=== PATIENT | female | born 1980 | race Caucasian/White ===

== ENCOUNTER 2017-02-02 19:32 | Inpatient (IN) | payer MEDICAID, OTHER ==
[~2017-02-02] VITALS: Ht 160 cm; Wt 77.0 kg
[2017-02-02] MEDS ORDERED: FAMOTIDINE 20 MG TAB PO STA (20:28)
[2017-02-02] MEDS ORDERED: ONDANSETRON 4 MG INJ IV STA ×2 (20:28→21:53)
[2017-02-02] MEDS ORDERED: morphine 4 MG/ML VIAL IV STA (20:28)
--- NOTE | 2017-02-02 20:34 | ERD ---
ER Documentation Chief Complaint Date/Time DATE: 02/02/17 TIME: 20:31 Chief Complaint C/O abd pain x 3 wks. (+) N/V. Dx'd with GS. Needs surgery. HPI This is a 36-year-old female who presents the emergency department today with her for complaints of abdominal pain for the past 7-8 days. States she also has nausea. States that she went to [place] a couple of days ago as that was the closest hospital and was told she had gallstones. States that she did go to her primary care doctor but she is waiting for referral for specialist. States she is taking [place] with no improvement in symptoms. Denies any fevers or chills, dysuria, diarrhea. ROS All systems reviewed and are negative except as per history of present illness. Medications Home Meds No Active Prescriptions or Reported Meds Allergies Allergies: Coded Allergies: No Known Allergy (Unverified , 11/14/15) PMhx/Soc Medical and Surgical Hx: pt denies Surgical Hx History of Surgery: No Anesthesia Reaction: No Hx Neurological Disorder: No Hx Respiratory Disorders: No Hx Cardiac Disorders: No Hx Psychiatric Problems: No Hx Miscellaneous Medical Probl: Yes (Gallstones) Hx Alcohol Use: No Hx Substance Use: No Hx Tobacco Use: No Smoking Status: Never smoker Physical Exam Vitals Vital Signs Date Time Temp Pulse Resp B/P Pulse Ox O2 Delivery O2 Flow Rate FiO2 02/02/17 19:35 98.5 78 18 139/80 99 Physical Exam Const: obese, mild distress Head: Atraumatic Eyes: Normal Conjunctiva ENT: Normal External Ears, Nose and Mouth. Neck: Full range of motion..~ No meningismus. Resp: Clear to auscultation bilaterally Cardio: Regular rate and rhythm, no murmurs Abd: Soft, epigastric and right upper quadrant tenderness, non distended. Normal bowel sounds no lower abdominal pain. No tenderness at McBurney's. Skin: No petechiae or rashes Back: No midline or flank tenderness Ext: No cyanosis, or edema Neur: Awake and alert Psych: Normal Mood and Affect Result Diagram: 02/02/17204902/02/172049 Results 24 hrs Laboratory Tests Test 02/02/17 20:45 02/02/17 20:50 Urine Color JUVE Urine Clarity CLEAR Urine pH 6.0 Urine Specific [place] 1.024 Urine Ketones 2+mg/dL Urine Nitrite NEGATIVEmg/dL Urine Bilirubin NEGATIVEmg/dL Urine Urobilinogen 2+mg/dL Urine Leukocyte Esterase NEGATIVELeu/ul Urine Microscopic RBC 41/HPF Urine Microscopic WBC 4/HPF Urine Squamous Epithelial Cells FEW/HPF Urine Mucus FEW/HPF Urine Hemoglobin 3+mg/dL Urine Glucose NEGATIVEmg/dL Urine Total Protein 2+mg/dl White Blood Count 19.310^3/ul Red Blood Count 5.2110^6/ul Hemoglobin 14.1g/dl Hematocrit 43.0% Mean Corpuscular Volume 82.5fl Mean Corpuscular Hemoglobin 27.1pg Mean Corpuscular Hemoglobin Concent 32.8g/dl Red Cell Distribution Width 13.2% Platelet Count 80074^3/UL Mean Platelet Volume 10.2fl Neutrophils % 85.9% Lymphocytes % 5.4% Monocytes % 7.9% Eosinophils % 0.0% Basophils % 0.2% Nucleated Red Blood Cells % 0.0/100WBC Neutrophils # 16.610^3/ul Lymphocytes # 1.010^3/ul Monocytes # 1.510^3/ul Eosinophils # 0.010^3/ul Basophils # 0.010^3/ul Nucleated Red Blood Cells # 0.010^3/ul Sodium Level 136mmol/L Potassium Level 3.4mmol/L Chloride Level 97mmol/L Carbon Dioxide Level 27mmol/L Anion Gap 15 Blood Urea Nitrogen 8mg/dl Creatinine 0.59mg/dl Glucose Level 149mg/dl Calcium Level 9.4mg/dl Total Bilirubin 2.5mg/dl Direct Bilirubin 0.00mg/dl Indirect Bilirubin 2.5mg/dl Aspartate Amino Transf (AST/SGOT) 48IU/L Alanine Aminotransferase (ALT/SGPT) 131IU/L Alkaline Phosphatase 223IU/L Total Protein 9.3g/dl Albumin 4.9g/dl Globulin 4.40g/dl Albumin/Globulin Ratio 1.11 Lipase 94U/L Current Medications Medications (Trade) Dose Ordered Sig/Jose Route PRN Reason Start Time Stop Time Status Last Admin Dose Admin Morphine Sulfate (morphine) 4 mg ONCE STAT IV 02/02/17 20:28 02/02/17 20:31 DC 02/02/17 20:57 Ondansetron HCl (Zofran Inj) 4 mg ONCE STAT IV 02/02/17 20:28 02/02/17 20:31 DC 02/02/17 20:57 Famotidine 20 mg 20 mg ONCE STAT PO 02/02/17 20:28 02/02/17 20:31 DC 02/02/17 20:56 Sodium Chloride (NS) 1,000 ml @ 1,000 mls/hr Q1H ONCE IV 02/02/17 22:00 02/02/17 22:59 DC 02/02/17 22:05 Hydromorphone HCl (Dilaudid) 1 mg ONCE STAT IV 02/02/17 21:53 02/02/17 21:54 DC 02/02/17 22:04 Ondansetron HCl (Zofran Inj) 4 mg ONCE STAT IV 02/02/17 21:53 02/02/17 21:54 DC 02/02/17 22:04 DIAGNOSTIC IMAGING REPORT Patient: LASHANDA GARCIA : 1980 Age: 36 Sex: F MR #: [id number] DOS: 02/02/172027 Ordering MD: SHERRI STEINBERG PA-C Location: FTE Room/Bed: PROCEDURE: Limited ultrasound of the gallbladder. CLINICAL INDICATION: 36 years of age, female. Abdominal pain. TECHNIQUE: Multiple real-time longitudinal and transverse images of the gallbladder and the bile ducts were acquired utilizing a curved array transducer. Images were reviewed on a high-resolution PACS workstation. COMPARISON: None available. FINDINGS: Pancreas: Not well seen due to bowel gas. Liver appearance: Mildly echogenic in keeping with steatosis. Liver length: 15.9 cm Bile Ducts: No intrahepatic or extrahepatic biliary ductal dilatation. CBD: 0.5 cm. Gallbladder: 2.6 cm shadowing stone is lodged in the gallbladder neck. Gallbladder wall measures 2 mm. Gallbladder is mildly distended. Main portal vein is patent with hepatopetal flow. Right kidney length: 9.2 cm. Right kidney appearance: Evaluation is limited due to bowel gas. Negative for hydronephrosis. Lower pole parenchyma is not well seen. Other: None. IMPRESSION: Cholelithiasis without evidence of gallbladder wall inflammation on ultrasound. Gallstone is lodged in the gallbladder neck and may account for right upper quadrant pain. Mild hepatic steatosis. Limited abdominal ultrasound due to patient discomfort and bowel gas. Pancreas and right kidney are not well seen. RPTAT: HCTS Physician Rell Date Time Electronically viewed and signed by Trish Carvalho Physician on 02/02/2017 21: 59 CS/ CC: SHERRI STEINBERG PA-C Procedures/MDM This is a 36-year-old female who presents the emergency department today complaining of abdominal pain for the past 7-8 days and worse over the past couple of days. Patient was recently diagnosed at [facility] with gallstones. Patient presents today because of continued persistent pain. Per medical records this is the patient's first visit to this emergency department for this type of abdominal pain. Given patient's physical exam I did obtain laboratory workup and imaging. Laboratory workup elevated white blood cell count of 19.3. She is not anemic. Platelets are within normal limits. Potassium is very mildly decreased otherwise electrolytes are within normal limits. Glucose within normal limits. Lipase is within normal limits. Liver enzymes are elevated. Bilirubin is elevated at 2.5. UA is negative for infection. urine test is negative right upper quadrant ultrasound shows cholelithiasis without evidence of gallbladder wall inflammation on ultrasound. There is a gallstone lodged in the gallbladder neck. The gallbladder is mildly distended. Patient was given morphine, Zofran, Pepcid here in the emergency department and pain persisted and she was therefore given IV fluids, 1 mg Dilaudid. Pain slightly improved. I did discuss the patient with Dr. Gurrola and given her abnormal laboratory workup as well as a gallstone lodged in the gallbladder neck he feels it would be beneficial for the patient to be admitted for further evaluation of possible choledocholithiasis with MRCP. I have discussed the results with the patient and her and they have agreed to be admitted. Any further orders placed will be completed by the admitting physician Departure Diagnosis: Primary Impression: Abdominal pain Abdominal location: right upper quadrant Qualified Code: R10.11 - Right upper quadrant abdominal pain Additional Impression: Choledocholithiasis Condition: Fair SHERRI STEINBERG PA-C Feb 02, 2017 20:34
[2017-02-02 21:03] LABS: ABNORMAL IP MESSAGE 1; BASOPHILS % 0.2 % (0.0-2.0); HEMOGLOBIN 14.1 g/dl (12.0-16.0); LYMPHOCYTES % 5.4 % (15.0-51.0); MEAN CORPUSCULAR HEMOGLOBIN 27.1 pg (29.0-33.0); MEAN CORPUSCULAR HGB CONC 32.8 g/dl (32.0-37.0); MEAN CORPUSCULAR VOLUME 82.5 fl (82.0-101.0); MEAN PLATELET VOLUME 10.2 fl (7.4-10.4); MONOCYTE # 1.5 10^3/ul (0.3-0.9); MONOCYTES % 7.9 % (0.0-11.0); NEUTROPHIL # 16.6 10^3/ul (1.6-7.5); NEUTROPHILS % 85.9 % (39.0-77.0); PLATELET COUNT 239 10^3/UL (140-415); RED BLOOD COUNT 5.21 10^6/ul (4.20-5.40); RED CELL DISTRIBUTION WIDTH 13.2 % (11.5-14.5); WHITE BLOOD COUNT 19.3 10^3/ul (4.8-10.8)
[2017-02-02 21:13] LABS: ADD UMIC YES; UR ASCORBIC ACID NEGATIVE (NEGATIVE); UR BILIRUBIN (Dip) NEGATIVE (NEGATIVE); UR BLOOD (Dip) 3+ mg/dL (NEGATIVE); UR CLARITY CLEAR (CLEAR); UR COLOR AMBER (YELLOW); UR GLUCOSE (Dip) NEGATIVE (NEGATIVE); UR KETONES (Dip) 2+ mg/dL (NEGATIVE); UR LEUKOCYTE ESTERASE (Dip) NEGATIVE Leu/ul (NEGATIVE); UR MUCUS FEW /HPF (NONE SEEN); UR NITRITE (Dip) NEGATIVE (NEGATIVE); UR RBC 41 /HPF (0-5); UR SPECIFIC GRAVITY (Dip) 1.024 (1.003-1.030); UR SQUAMOUS EPITHELIAL CELL FEW /HPF (FEW); UR TOTAL PROTEIN (Dip) 2+ mg/dl (NEGATIVE); UR UROBILINOGEN (Dip) 2+ mg/dL (NEGATIVE)
[2017-02-02 21:19] LABS: POSITIVE DIFF @See below
[2017-02-02 21:26] LABS: ALBUMIN 4.9 g/dl (3.3-4.9); ALBUMIN/GLOBULIN RATIO 1.11; BILIRUBIN,INDIRECT 2.5 mg/dl (0-1.1); BILIRUBIN,TOTAL 2.5 mg/dl (0.2-1.3); CALCIUM 9.4 mg/dl (8.4-10.2); CREATININE 0.59 mg/dl (0.44-1.00); POTASSIUM 3.4 mmol/L (3.5-5.1); TOTAL PROTEIN 9.3 g/dl (6.1-8.1)
[2017-02-02] MEDS ORDERED: HYDROmorphONE 1 MG/ML SYG IV STA (21:53)
--- NOTE | 2017-02-02 21:59 | RADRPT ---
PROCEDURE: Limited ultrasound of the gallbladder. CLINICAL INDICATION: 36 years of age, female. Abdominal pain. TECHNIQUE: Multiple real-time longitudinal and transverse images of the gallbladder and the bile d ucts were acquired utilizing a curved array transducer. Images were reviewed on a high-resolution [facility] workstation. COMPARISON: None available. FINDINGS: Pancreas: Not well seen due to bowel gas. Liver appearance: Mildly echogenic in keeping with steatosis. Liver length: 15.9 cm Bile Ducts: No intrahepatic or extrahepatic biliary ductal dilatation. CBD: 0.5 cm. Gallbladder: 2.6 cm shadowing stone is lodged in the gallbladder neck. Gallbladder wall measures 2 m m. Gallbladder is mildly distended. Main portal vein is patent with hepatopetal flow. Right kidney length: 9.2 cm. Right kidney appearance: Evaluation is limited due to bowel gas. Negative for hydronephrosis. Lower pole parenchyma is not well seen. Other: None. IMPRESSION: Cholelithiasis without evidence of gallbladder wall inflammation on ultrasound. Gallstone is lodged in the gallbladder neck and may account for right upper quadrant pain. Mild hepatic steatosis. Limited abdominal ultrasound due to patient discomfort and bowel gas. Pancreas and right kidney are not well seen. RPTAT: HCTS Physician Rell Date Time Electronically viewed and signed by Physician Rell on 02/02/2017 21:59 /
[2017-02-02] MEDS ORDERED: SOD CHLORIDE 0.9% 1,000 ML IV ONE (22:00)
--- NOTE | 2017-02-02 23:19 | EN ---
Date/Time of Note Date/Time of Note DATE: 02/02/17 TIME: 23:19 ER Progress Note Chief complaint: Abdominal pain HPI: The patient is a 63-year-old female, presenting with epigastric abdominal pain for 4 days. The patient was initially seen by the PA in ED2. She was seen at [facility] 3 days ago, diagnosed with gallstone and discharge. She saw her physician today who referred her to general surgery. She complains of intermittent vomiting and constipation for the last 4 days, denies dysuria, denies fever, chills, neck pain, chest pain, dyspnea. She does not smoke nor drink Past medical history: None Past surgical history: One Const: No acute distress. Head: Atraumatic. Eyes: Normal Conjunctiva. ENT: Normal External Ears, Nose and Mouth. Neck: Full range of motion. No meningismus. Resp: Clear to auscultation bilaterally. Cardio: Regular rate and rhythm. Abd: Soft, non distended, normal bowel sounds, Moderate epigastric and right upper quadrant tenderness, no rigidity, rebound, CVA tenderness Skin: No petechiae or rashes. Back: No midline or flank tenderness. Ext: No cyanosis, or edema. Neur: Awake and alert. No focal deficit Psych: Normal Mood and Affect. [place] [id number] Radiology Main Line: [phone] DIAGNOSTIC IMAGING REPORT Patient: LASHANDA GARCIA : 1980 Age: 36 Sex: F MR #: [id number] DOS: 02/02/172027 Ordering MD: SHERRI STEINBERG PA-C Location: FTE Room/Bed: PROCEDURE: Limited ultrasound of the gallbladder. CLINICAL INDICATION: 36 years of age, female. Abdominal pain. TECHNIQUE: Multiple real-time longitudinal and transverse images of the gallbladder and the bile ducts were acquired utilizing a curved array transducer. Images were reviewed on a high-resolution PACS workstation. COMPARISON: None available. FINDINGS: Pancreas: Not well seen due to bowel gas. Liver appearance: Mildly echogenic in keeping with steatosis. Liver length: 15.9 cm Bile Ducts: No intrahepatic or extrahepatic biliary ductal dilatation. CBD: 0.5 cm. Gallbladder: 2.6 cm shadowing stone is lodged in the gallbladder neck. Gallbladder wall measures 2 mm. Gallbladder is mildly distended. Main portal vein is patent with hepatopetal flow. Right kidney length: 9.2 cm. Right kidney appearance: Evaluation is limited due to bowel gas. Negative for hydronephrosis. Lower pole parenchyma is not well seen. Other: None. IMPRESSION: Cholelithiasis without evidence of gallbladder wall inflammation on ultrasound. Gallstone is lodged in the gallbladder neck and may account for right upper quadrant pain. Mild hepatic steatosis. Limited abdominal ultrasound due to patient discomfort and bowel gas. Pancreas and right kidney are not well seen. RPTAT: HCTS Trish Carvalho Physician Date Time Electronically viewed and signed by Trish Carvalho Physician on 02/02/2017 21: 59 CS/ CC: SHERRI STEINBERG PA-C MEDICAL MAKING DECISION: The patient is a 36-year-old female, presenting with acute symptomatic cholelithiasis, acute hypokalemia, probable choledocholithiasis. She was treated with 1 L normal saline for acute dehydration, morphine 4 mg IV, Dilaudid 1 mg IV for pain and Zofran 4 mg IV for nausea, Zosyn IV for acute symptomatic cholelithiasis and potassium chloride 20 mEq IV for acute hypokalemia with good response. She would need MRCP for further evaluation of choledocholithiasis The differential diagnoses considered include but are not limited to cholelithiasis, cholecystitis, cystitis, pancreatitis, hepatitis, gastritis, peptic ulcer disease, gastric ulcer, appendicitis, diverticulitis, cholangitis, choledocholithiasis, partial small bowel obstruction. Consultation: I discussed the patient with the on-call general surgeon Dr. Geiger at 11:10 PM, who was made aware of the lab, the treatment, the patient condition. He accepted the consult Diabetic impression: 1. Acute symptomatic cholelithiasis 2. Acute hypokalemia 3. Probable choledocholithiasis Disposition: I discussed the findings with the patient. I discussed the on-call hospitalist Dr. Bagley at 11:20 PM who was made aware of the lab, the treatment , the patient condition. The patient is admitted to MARY Rosado MD Feb 02, 2017 23:19
[2017-02-02] MEDS ORDERED: PIPER-TAZO 3.375 GM IV (PMX) 100 ML IVPB ONE (23:30)
[2017-02-03] MEDS ORDERED: NACL 0.9% 3 ML SYG IV SCH
[2017-02-03] MEDS ORDERED: POTASSIUM CHLORIDE 20 MEQ in SOD CHLORIDE 0.9% 100 ML IVPB ONE ×2
[2017-02-03] MEDS ORDERED: ACETAMINOPHEN 325 MG TAB PO PRN
[2017-02-03 00:23] VITALS: TEMP 98
[2017-02-03 00:50] VITALS: BP 129/67; PULSE 73; RESP 18; Ht 160 cm; Wt 77.0 kg
[2017-02-03] MEDS: HYDROmorphONE 1 MG/ML SYG IV PRN ×6 (01:00→22:28)
[2017-02-03] MEDS: SOD CHLORIDE 0.9% 1,000 ML IV SCH ×3 (01:08→16:58)
[2017-02-03] MEDS: ONDANSETRON 4 MG INJ IV PRN (05:00)
--- NOTE | 2017-02-03 05:01 | HP ---
Date/Time of Note Date/Time of Note DATE: 02/03/17 TIME: 04:54 Assessment/Plan VTE Prophylaxis VTE Prophylaxis Intervention: SCD's Lines/Catheters IV [facility]from [facility] Peripheral IV Assessment/Plan Chief Complaint/Hosp Course This is a 36-year-old female being admitted to the [facility] floor for: #1 symptomatic cholelithiasis: Elevated white blood cell count but no signs of any cholecystitis on ultrasound, there is a stone that appears to be in the gallbladder neck. Surgery was consulted via the ED. At the current time will put the patient on Zosyn IV. Keep the patient n.p.o. IV narcotic and control. May need MRI/GI consultation however we will await for surgery recommendations. #2 leukocytosis: At the current time patient is afebrile however with the stone being in the neck of the gallbladder there is concern for possible development of cholecystitis and/or other infections. The current time we will keep the patient on Zosyn IV. Will continue to monitor the patient for development of any fever or worsening of her symptoms. GI consulted. #3 Transaminitis: Likely secondary to #1. Will continue to monitor the patient. #4 DVT and GI prophylaxis: SCDs, acid apoorva Further treatment strategy will be implemented as per the clinical course Problems: HPI/ROS Admit Date/Time Admit Date/Time Feb 02, 2017 at 23:12 Hx of Present Illness Chief complaint: Abdominal pain This is a 36-year-old female who presents the emergency department today with her for complaints of abdominal pain for the past 7-8 days. States she also has nausea. States that she went to [place] a couple of days ago as that was the closest hospital and was told she had gallstones. States that she did go to her primary care doctor but she is waiting for referral for specialist. States she is taking [place] with no improvement in symptoms. Denies any fevers or chills, dysuria, diarrhea. Allergies: NKDA Medications: None ROS Const: Negative for fever, chills, weight gain or weight loss, fatigue, or diaphoresis Eyes : No pain discharge or redness or change in visual acuity ENT: No pain, sore throat, congestion, congestion, dysphagia or discharge Respiratory: No shortness of breath, cough, sputum, wheezing, or pleuritic pain Cardiovascular: No chest pain, palpitation, PND, or edema GI : As per HPI Genitourinary: No dysuria, hematuria, flank pain , discharge or CVA tenderness Musculoskeletal: No joint pain, back pain, neck pain, restricted range of motion in neck or joints Skin: No rash, bruising or hives Neuro: No headache, dizziness, syncope, seizure, focal weakness Endocrine: No polyuria, polydipsia, temperature intolerance Psych: No hallucination, depression, anxiety or suicidal ideation PMH/Family/Social Past Medical History Gallstones Past Surgical History 1 Family History Significant Family History: hypertension Social History Alcohol Use: none Smoking Status: Never smoker Drug Use: none Exam/Review of Systems Vital Signs Vitals Vital Signs Date Time Temp Pulse Resp B/P Pulse Ox O2 Delivery O2 Flow Rate FiO2 02/03/17 00:50 98.1 73 18 129/67 98 02/03/17 00:23 Room Air Exam Exam General: Patient is well-developed well-nourished The patient is alert oriented -3 lying comfortably in bed. HEENT: Atraumatic, normocephalic. The pupils are equal, round and reactive. Extraocular motor are intact Neck: Supple with full range of motion. No rigidity or meningismus Chest: Nontender Lungs: Clear to auscultation bilaterally no crackles rales or wheezing Heart: Normal S1-S2, Regular rhythm and rate. No murmur, S3, or S4 Abdomen: Soft, tenderness to right upper quadrant, nondistended normal bowel sounds Extremities: Normal to inspection, no edema no cyanosis Neurologic: Normal mental status, speech normal, cranial nerves II through XII are intact, motor and sensory are intact, no focal weakness Additional Comments PROCEDURE: Limited ultrasound of the gallbladder. CLINICAL INDICATION: 36 years of age, female. Abdominal pain. TECHNIQUE: Multiple real-time longitudinal and transverse images of the gallbladder and the bile ducts were acquired utilizing a curved array transducer. Images were reviewed on a high-resolution PACS workstation. COMPARISON: None available. FINDINGS: Pancreas: Not well seen due to bowel gas. Liver appearance: Mildly echogenic in keeping with steatosis. Liver length: 15.9 cm Bile Ducts: No intrahepatic or extrahepatic biliary ductal dilatation. CBD: 0.5 cm. Gallbladder: 2.6 cm shadowing stone is lodged in the gallbladder neck. Gallbladder wall measures 2 mm. Gallbladder is mildly distended. Main portal vein is patent with hepatopetal flow. Right kidney length: 9.2 cm. Right kidney appearance: Evaluation is limited due to bowel gas. Negative for hydronephrosis. Lower pole parenchyma is not well seen. Other: None. IMPRESSION: Cholelithiasis without evidence of gallbladder wall inflammation on ultrasound. Gallstone is lodged in the gallbladder neck and may account for right upper quadrant pain. Mild hepatic steatosis. Limited abdominal ultrasound due to patient discomfort and bowel gas. Pancreas and right kidney are not well seen. RPTAT: HCTS Trish Carvalho Physician Date Time Electronically viewed and signed by Trish Carvalho Physician on 02/02/2017 21: 59 CS/ CC: SHERRI STEINBERG PA-C Labs Result Diagram: 02/02/17204902/02/172049 Medications Medications Current Medications Sodium Chloride (NS) 1,000 ml @ 80 mls/hr [id number] IV Last administered on 02/03 01:08; Admin Dose 80 MLS/HR; Start 02/02/17 at 23:45 Ondansetron HCl (Zofran Inj) 4 mg Q6H PRN IV NAUSEA AND/OR VOMITING; Start at 00:00 Acetaminophen (Tylenol Tab) 650 mg Q6H PRN PO PAIN LEVEL 1-3 OR FEVER; Start at 00:00 Hydromorphone HCl (Dilaudid) 0.5 mg Q4H PRN IV SEVERE PAIN LEVEL 7-10 Last administered on 02/03/17 01:00; Admin Dose 0.5 MG; Start 02/03/17 at 00:00 Famotidine (Pepcid Iv) 20 mg Q12 IV ; Start 02/03/17 at 09:00 BECK JOHN Feb 03, 2017 05:00
[2017-02-03] MEDS: PIPER-TAZO 3.375 GM IV (PMX) 100 ML IVPB SCH ×3 (06:01→17:00)
[2017-02-03 06:03] LABS: ABNORMAL IP MESSAGE 1; BASOPHILS % 0.2 % (0.0-2.0); EOSINOPHILS % 0.1 % (0.0-7.0); HEMATOCRIT 37.8 % (37.0-47.0); HEMOGLOBIN 12.3 g/dl (12.0-16.0); LYMPHOCYTES # 1.1 10^3/ul (0.8-2.9); LYMPHOCYTES % 5.7 % (15.0-51.0); MEAN CORPUSCULAR HEMOGLOBIN 27.8 pg (29.0-33.0); MEAN CORPUSCULAR HGB CONC 32.5 g/dl (32.0-37.0); MEAN CORPUSCULAR VOLUME 85.3 fl (82.0-101.0); MEAN PLATELET VOLUME 10.8 fl (7.4-10.4); MONOCYTE # 1.7 10^3/ul (0.3-0.9); MONOCYTES % 9.1 % (0.0-11.0); NEUTROPHIL # 16.1 10^3/ul (1.6-7.5); NEUTROPHILS % 84.1 % (39.0-77.0); PLATELET COUNT 190 10^3/UL (140-415); RED BLOOD COUNT 4.43 10^6/ul (4.20-5.40); RED CELL DISTRIBUTION WIDTH 13.2 % (11.5-14.5); WHITE BLOOD COUNT 19.1 10^3/ul (4.8-10.8)
[2017-02-03 06:07] LABS: POSITIVE DIFF @See below
[2017-02-03 06:58] LABS: ALBUMIN 3.8 g/dl (3.3-4.9); ALBUMIN/GLOBULIN RATIO 1.08; BILIRUBIN,INDIRECT 2.1 mg/dl (0-1.1); BILIRUBIN,TOTAL 2.1 mg/dl (0.2-1.3); CALCIUM 8.6 mg/dl (8.4-10.2); CHOL/HDL RATIO 2.8 RATIO; CREATININE 0.58 mg/dl (0.44-1.00); POTASSIUM 4.6 mmol/L (3.5-5.1); TOTAL PROTEIN 7.3 g/dl (6.1-8.1)
[2017-02-03 07:03] LABS: T3 UPTAKE 33.6 % (23.5-40.5)
[2017-02-03 07:17] LABS: THYROID STIMULATING HORMONE 0.678 MIU/L (0.465-4.680)
[2017-02-03 07:32] VITALS: BP 136/76; RESP 18
[2017-02-03] MEDS: FAMOTIDINE 20 MG INJ IV SCH ×2 (08:35→19:31)
--- NOTE | 2017-02-03 13:30 | RADRPT ---
PROCEDURE: MRCP. CLINICAL INDICATION: Right upper quadrant pain. TECHNIQUE: MRCP was performed on the a high-resolution, high Bruna field strength scanner. Patien t was examined without contrast. 3-D coronal rotating MIP images of the biliary tree are available for review. COMPARISON: Abdominal ultrasound from 02/02/2017. FINDINGS: The gallbladder is distended with gallbladder wall edema and moderate pericholecystic fluid and infl ammatory changes, seen predominately in the gastric fundus and extending to the region of the hepati c flexure of the colon. There is a single 2.7 cm stone seen dependently within the gallbladder, near the gallbladder neck. The proximal common bile duct measures 5.9 mm and tapers smoothly towards the ampulla. There is no evidence of intra or extrahepatic biliary ductal dilatation. No focal signal a bnormality is seen within the biliary tree to suggest choledocholithiasis. There is a low posterior insertion of the cystic duct. The pancreatic duct, as visualized, is unremarkable. There is no panc reatic divisum. The liver, spleen, adrenal glands, kidneys, and stomach demonstrate normal signal intensity and morp hology. The visualized bowel is unremarkable. IMPRESSION: Cholelithiasis with gallbladder wall edema and pericholecystic inflammatory change, consistent with acute calculus cholecystitis. No evidence of choledocholithiasis or biliary obstruction. RPTAT: JJ .Irineo Ivan MD, MD Date Time Electronically viewed and signed by .Irineo Ivan MD, MD on 02/03/2017 13:30 .A/
--- NOTE | 2017-02-03 18:06 | CONS ---
Date/Time of Note Date/Time of Note DATE: 02/03/17 TIME: 18:06 Assessment/Plan Assessment/Plan Additional Assessment/Plan [facility] IN[facility]IENT CONSULTATION NOTE DATE OF SERVICE: 02/03/2017 PLACE OF SERVICE: [facility], fourth floor ASSESSMENT AND PLAN: A very-pleasant 36-year-old lady with comorbidity of BMI 30.1, presenting with acute cholecystitis without obvious evidence of choledocholithiasis on her MRCP. Patient can certainly benefit from laparoscopic cholecystectomy after we have confirmation from our gastroenterology colleagues regarding lack of evidence for need for ERCP. Patient is currently on the schedule tentatively for tomorrow morning. I consented her and family for the operation and answered all questions. Patient and family appear to understand and agreed with plans. With above assessment, I've recommended the followin. N.p.o. after midnight 2. Gastroneurology consultation 3. On the schedule for laparoscopic cholecystectomy tomorrow morning Thank you very much for having me involved in the care of this very pleasant patient and wonderful family. If you have any questions, please feel free to contact me at [phone]. Nature of presenting problem: Moderate to high severity Please note that, given the multiple number of diagnoses or management options, the moderate amount and/or complexity of data needed to be reviewed, and moderate to high risk of complications and/or morbidity or mortality, this qualifies as moderate complexity type of decision-making. Disclaimers: 1. Inadvertent spelling and grammatical errors are likely due to electronic health record (EHR)/dictation software use and do not reflect on the quality of delivered patient care. 2. The electronic timestamp recorded on this note does not necessarily reflect the actual date and time of the visit. 3. Portions of this note are created through electronic templates and computer algorithms that may bring in information either from the system or from other physicians and providers that are outside of my control and may not be always accurate. In general (but not always) this happens either in the beginning or at the end of the note. My portions of the gathered data are generally dictated in 1 continuous block of text and entered into one field in the EHR. 4. There may be other unanticipated errors in the note that are outside of my control. I can only attest to the portions of the note that I have created. Updated clinical summary: A very-pleasant 36-year-old lady with comorbidity of BMI 30.1, presenting with acute cholecystitis without obvious evidence of choledocholithiasis on her MRCP. Comorbidities: 1. BMI 30.1 2. 2016 CONSULTATION REQUESTED BY: Kolton Bagley MD Dear Dr. Bagley: Thank you very much for the opportunity to participate in the care of this very pleasant lady and her wonderful family. HISTORY OF PRESENT ILLNESS: The patient is a very pleasant 36-year-old lady with above-mentioned comorbidities whom we were kindly asked consult regarding management of acute cholecystitis. Note the patient has had abdominal pain for the last several days and was evaluated at [facility] 2 days ago for similar symptoms and was sent home with plans for outpatient management of this problem. She was admitted through the emergency department at [facility] on 02/03/2017 due to ongoing issues with abdominal pain and nausea without significant complaints of vomiting. No fevers or chills. No changes in bowel or bladder habits. No blood in the stool or urine. No other prior symptoms in the past. ALLERGIES: NO KNOWN DRUG ALLERGIES MEDICATIONS Documented in the electronic records and reviewed by me. Please see the electronic records for details, as well as details for inpatient medications which were also reviewed by me. SOCIAL HISTORY: The patient lives with family. 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 There are no other significant medical, surgical or oncologic issues in the family as reported by the patient or reflected in the chart. REVIEW OF SYSTEMS: Other than mentioned above, there were no other pertinent positives or pertinent negatives in an otherwise complete 14 point review of systems. PHYSICAL EXAMINATION GENERAL: The patient appears to be a very pleasant lady of descent lying in bed, appearing stated age, and otherwise in no acute distress. BMI: 30.1 VITAL SIGNS: AVSS (please also see auto important data if available as well as the electronic records) HEENT: Normocephalic and atraumatic. Extraocular muscles and hearing are grossly intact bilaterally and symmetrically. Sclerae are nonicteric. Oral cavity is clear; oral mucosa appear to be pink and moist. Dentition: fair. NECK: Supple. There is no lymphadenopathy or JVD. There is no submental, submandibular or supraclavicular lymphadenopathy. CHEST: Rises symmetrically with each breath; patient is breathing comfortably. There are no audible wheezes, rales or rhonchi on the gross exam. HEART: Pulse is regular and palpable on the right wrist. Capillary refill is normal. Carotid pulses are palpable bilaterally and symmetrically in the neck. EXTREMITIES: Lower extremities contain no pitting edema around the ankles bilaterally and symmetrically. ABDOMEN: Abdomen is soft, tender to palpation in right upper quadrant and nondistended. No evidence of ascites, organomegaly, caput medusae, engorged subcutaneous veins, or other abnormalities. There are no peritoneal signs or guarding. SKIN: Appears to be pink and feels warm to touch. NEUROLOGIC: Awake, alert, and follows commands appropriately. LABORATORY DATA: See below IMAGING: See electronic chart. Please note that I've personally reviewed all pertinent available images and I agree in general with their overall reported findings. Consultation Date/Type/Reason Admit Date/Time Feb 02, 2017 at 23:12 Social History Alcohol Use: none Smoking Status: Never smoker Drug Use: none Exam/Review of Systems Vital Signs Vitals Vital Signs Date Time Temp Pulse Resp B/P Pulse Ox O2 Delivery O2 Flow Rate FiO2 02/03/17 07:32 98.2 84 18 136/76 99 02/03/17 00:23 Room Air Intake and Output 02/02/17 02/02/17 02/03/17 15:00 23:00 07:00 Intake Total 530 ml Balance 530 ml Results Result Diagram: 02/03/17 0452 02/03/17 0448 Results 24 hrs Laboratory Tests Test 02/02/17 20:45 02/02/17 20:50 02/03/17 04:48 02/03/17 04:52 Urine Color JUVE Urine Clarity CLEAR Urine pH 6.0 Urine Specific [place] 1.024 Urine Ketones 2+ H Urine Nitrite NEGATIVE Urine Bilirubin NEGATIVE Urine Urobilinogen 2+ H Urine Leukocyte Esterase NEGATIVE Urine Microscopic RBC 41 H Urine Microscopic WBC 4 Urine Squamous Epithelial Cells FEW Urine Mucus FEW A Urine Hemoglobin 3+ H Urine Glucose NEGATIVE Urine Total Protein 2+ H White Blood Count 19.3 #H 19.1 H Red Blood Count 5.21 # 4.43 Hemoglobin 14.1 12.3 Hematocrit 43.0 37.8 Mean Corpuscular Volume 82.5 85.3 Mean Corpuscular Hemoglobin 27.1 L 27.8 L Mean Corpuscular Hemoglobin Concent 32.8 32.5 Red Cell Distribution Width 13.2 13.2 Platelet Count 239 190 # Mean Platelet Volume 10.2 10.8 H Neutrophils % 85.9 H 84.1 H Lymphocytes % 5.4 L 5.7 L Monocytes % 7.9 9.1 Eosinophils % 0.0 0.1 Basophils % 0.2 0.2 Nucleated Red Blood Cells % 0.0 0.0 Neutrophils # 16.6 H 16.1 H Lymphocytes # 1.0 1.1 Monocytes # 1.5 H 1.7 H Eosinophils # 0.0 0.0 Basophils # 0.0 0.0 Nucleated Red Blood Cells # 0.0 0.0 Sodium Level 136 136 Potassium Level 3.4 L 4.6 Chloride Level 97 101 Carbon Dioxide Level 27 28 Anion Gap 15 12 Blood Urea Nitrogen 8 6 L Creatinine 0.59 0.58 Glucose Level 149 130 Calcium Level 9.4 8.6 Total Bilirubin 2.5 H 2.1 H Direct Bilirubin 0.00 0.00 Indirect Bilirubin 2.5 H 2.1 H Aspartate Amino Transf (AST/SGOT) 48 H 38 Alanine Aminotransferase (ALT/SGPT) 131 H 110 H Alkaline Phosphatase 223 H 194 H Total Protein 9.3 H 7.3 # Albumin 4.9 3.8 # Globulin 4.40 H 3.50 H Albumin/Globulin Ratio 1.11 1.08 Lipase 94 Hemoglobin A1c 5.5 Magnesium Level 2.0 Triglycerides Level 85 Cholesterol Level 123 LDL Cholesterol, Calculated 63 HDL Cholesterol 43 Cholesterol/HDL Ratio 2.8 Thyroid Stimulating Hormone (TSH) 0.678 Free Thyroxine Index 2.32 Thyroxine (T4) 6.9 Triiodothyronine (T3) Uptake 33.6 Medications Medications Current Medications Sodium Chloride (NS) 1,000 ml @ 80 mls/hr [id number] IV Last administered on 02/03 16:58; Admin Dose 80 MLS/HR; Start 02/02/17 at 23:45 Ondansetron HCl (Zofran Inj) 4 mg Q6H PRN IV NAUSEA AND/OR VOMITING Last administered on 02/03/17 05:00; Admin Dose 4 MG; Start 02/03/17 at 00:00 Acetaminophen (Tylenol Tab) 650 mg Q6H PRN PO PAIN LEVEL 1-3 OR FEVER; Start at 00:00 Hydromorphone HCl (Dilaudid) 0.5 mg Q4H PRN IV SEVERE PAIN LEVEL 7-10 Last administered on 02/03/17 17:02; Admin Dose 0.5 MG; Start 02/03/17 at 00:00 Famotidine 20 mg 20 mg Q12 IV Last administered on 02/03/17 08:35; Admin Dose 20 MG; Start 02/03/17 at 09:00 Piperacillin Sod/ Tazobactam Sod (Zosyn 3.375gm/ 100 ml (Pmx)) 100 ml @ 200 mls /hr Q6 IVPB Last administered on 02/03/17 17:00; Admin Dose 200 MLS/HR; Start 02/03/17 at 06:00 JOSE ANGEL SALOMON M.D. Feb 03, 2017 18:06
[2017-02-03 20:45] VITALS: BP 131/71; RESP 18
[2017-02-04] VITALS (20 sets, daily range): BP systolic 104–139; BP diastolic 61–75; PULSE 72–90; RESP 15–20
[2017-02-04] MEDS: PIPER-TAZO 3.375 GM IV (PMX) 100 ML IVPB SCH ×2 (00:37→05:18)
[2017-02-04] MEDS: SOD CHLORIDE 0.9% 1,000 ML IV SCH (00:45)
[2017-02-04] MEDS: ONDANSETRON 4 MG INJ IV PRN (04:49)
[2017-02-04] MEDS: HYDROmorphONE 1 MG/ML SYG IV PRN ×4 (04:50→22:13)
[2017-02-04 05:35] LABS: BASOPHILS % 0.1 % (0.0-2.0); EOSINOPHILS % 0.1 % (0.0-7.0); HEMATOCRIT 35.3 % (37.0-47.0); HEMOGLOBIN 11.2 g/dl (12.0-16.0); LYMPHOCYTES # 1.1 10^3/ul (0.8-2.9); LYMPHOCYTES % 7.2 % (15.0-51.0); MEAN CORPUSCULAR HGB CONC 31.7 g/dl (32.0-37.0); MEAN CORPUSCULAR VOLUME 85.1 fl (82.0-101.0); MEAN PLATELET VOLUME 10.7 fl (7.4-10.4); MONOCYTE # 1.1 10^3/ul (0.3-0.9); MONOCYTES % 7.1 % (0.0-11.0); NEUTROPHIL # 13.5 10^3/ul (1.6-7.5); NEUTROPHILS % 84.8 % (39.0-77.0); PLATELET COUNT 208 10^3/UL (140-415); RED BLOOD COUNT 4.15 10^6/ul (4.20-5.40); RED CELL DISTRIBUTION WIDTH 13.5 % (11.5-14.5); WHITE BLOOD COUNT 15.9 10^3/ul (4.8-10.8)
[2017-02-04 05:45] LABS: INR 1.16; PROTIME 14.9 Sec (12.2-14.2); PT RATIO 1.2
[2017-02-04 06:15] LABS: ALBUMIN 3.6 g/dl (3.3-4.9); BILIRUBIN,INDIRECT 1.6 mg/dl (0-1.1); BILIRUBIN,TOTAL 1.6 mg/dl (0.2-1.3); CALCIUM 8.5 mg/dl (8.4-10.2); CREATININE 0.61 mg/dl (0.44-1.00); POTASSIUM 3.7 mmol/L (3.5-5.1); TOTAL PROTEIN 7.2 g/dl (6.1-8.1)
[2017-02-04 06:30] LABS: PHOSPHORUS 2.9 mg/dl (2.5-4.9)
[2017-02-04] MEDS: FAMOTIDINE 20 MG INJ IV SCH (08:36)
--- NOTE | 2017-02-04 10:18 | HPN ---
Date/Time of Note Date/Time of Note DATE: 02/04/17 TIME: 10:18 Interval H&P Admission Note Pt. seen H&P reviewed: No system changes Pt. seen H&P reviewed. No system changes (I attest that I have seen and examined the patient and reviewed the operation in detail, as well as its risks , benefits and alternatives of the operation). I attest that I have seen and examined the patient and reviewed in detail the operation, and its associated risks, benefits and alternative. I have answered all the patient's questions to the best of my ability and the patient wishes to proceed. Please refer to rest of electronic medical record for additional updates. JOSE ANGEL SALOMON M.D. Feb 04, 2017 10:18
[2017-02-04] MEDS ORDERED: FENTAnyl 50 MCG/ML VIAL ONE ×2 (10:35→12:24)
[2017-02-04] MEDS ORDERED: LIDOCAINE 2%/EPI 30 ML INJ ONE (10:52)
[2017-02-04] MEDS ORDERED: BUPIVACAINE 0.25% (MPF) 30 ML INJ ONE (10:52)
[2017-02-04] MEDS ORDERED: ROCURONIUM 50 MG INJ ONE (10:53)
[2017-02-04] MEDS ORDERED: CEFAZOLIN 1 GM INJ ONE (10:53)
[2017-02-04] MEDS ORDERED: LIDOCAINE 2% (SDV) 5 ML INJ ONE (10:53)
[2017-02-04] MEDS ORDERED: PROPOFOL 20 ML ONE (10:53)
[2017-02-04] MEDS ORDERED: SUCCINYLCHOLINE CHLORIDE 100 MG/5 ML SYG IV ONE (10:53)
[2017-02-04] MEDS ORDERED: ROPIVACAINE 0.5 % 30 ML VIAL ONE (10:53)
[2017-02-04] MEDS ORDERED: SUGAMMADEX SODIUM 200 MG/2 ML VIAL IV ONE (10:53)
[2017-02-04] MEDS ORDERED: METOCLOPRAMIDE 10 MG INJ IV PRN (11:30)
[2017-02-04] MEDS ORDERED: ONDANSETRON 4 MG INJ IV PRN (11:30)
[2017-02-04] MEDS ORDERED: MEPERIDINE 25 MG INJ IV PRN (11:30)
[2017-02-04] MEDS ORDERED: HYDROmorphONE (0.2 MG/ML) 10ML SYG IV PRN ×2 (11:30)
[2017-02-04] MEDS ORDERED: DIPHENHYDRAMINE 50 MG INJ IV PRN (11:30)
[2017-02-04] MEDS ORDERED: FENTAnyl 50 MCG/ML VIAL IV PRN ×2 (11:30)
--- NOTE | 2017-02-04 14:24 | OPR ---
Date/Time of Note Date/Time of Note DATE: 02/04/17 TIME: 14:24 Operative Report Surgeon see signature line Operative\Procedure Findings [facility] PLACE OF SERVICE: [facility] DATE OF SURGERY: 02/04/2017 PREOPERATIVE DIAGNOSIS: 1. Acute cholecystitis 2. 2015 3. BMI 30.1 POSTOPERATIVE DIAGNOSIS: 1. Severe acute on chronic e cholecystitis 2. 2016 3. BMI 30.1 OPERATION: 1. Laparoscopic cholecystectomy (modifier 22) SURGEON: Jose Angel Zamora M.D. BILLER: None ANESTHESIA: General endotracheal tube anesthesia ANESTHESIOLOGIST: Belinda Arana M.D. BRIEF SUMMARY: An otherwise uncomplicated but very difficult laparoscopic cholecystectomy was performed with findings of severe acute on chronic cholecystitis. Updated clinical summary: A very-pleasant 36-year-old lady with comorbidity of BMI 30.1, presenting with acute cholecystitis without obvious evidence of choledocholithiasis on her MRCP. Comorbidities: 1. BMI 30.1 2. 2016 BRIEF HISTORY: The patient is a very pleasant 36-year-old lady with comorbidity of BMI 30.1, presenting with acute cholecystitis without obvious evidence of choledocholithiasis on her MRCP. I met with the patient and family () and counseled them regarding the possible options of treatment, and I strongly suggested a laparoscopic, possible open cholecystectomy. We reviewed the operation in detail as well as the risks, benefits, alternatives, and expected outcomes of this operation. After careful consideration of all the risks, benefits, and alternatives, the patient and family appeared to understand those risks and wished to proceed with surgery. For a detailed report of my consultation with patient and family, please refer to my separate consultation note. After 1 day observation in-house to make sure that he liver function and injury parameters were improving, the patient was thought to be eligible for undergoing the above-mentioned operation. STATEMENT OF THE INFORMED CONSENT: The patient and family appeared to understand the risks of the operation to include, but not be limited to risk of postoperative pain and scar tissue, possible infection or bleeding requiring other interventions such as opening the wound, placement of drainage catheters, or other operative interventions; possible injury to surrounding to structures including bowel, bladder, bile duct, or blood vessels, or solid organs such as liver, kidney, or pancreas requiring other interventions or procedures; possible leakage of bile from surgical clip sites, suture lines, or worse, from common bile duct injury, causing significant increase in morbidity and mortality and requiring multiple interventions including but not limited to, placement of drainage catheters, imaging studies, as well as operative interventions; possible other source of sepsis such as urinary tract infections or pneumonias, or other sources of potentially life threatening problems such as deep venous thrombus formation causing pulmonary embolism, myocardial arrhythmias and infarctions, and even . After careful consideration of all their options, the patient and family appeared to understand and wished to proceed with surgery. DESCRIPTION OF PROCEDURE: After obtaining informed consent, the patient was brought into the operating room and was placed in a normal supine position, where successful general endotracheal tube anesthesia was performed. The patient 's abdominal skin was prepped and draped, from the nipple line down to the level of the groins, in the usual sterile fashion. Intravenous access was already in place, and appropriately chosen and dosed prophylactic intravenous antimicrobials were administered. We then called a surgical time-out where patient's identification, date of , nature of the operation, allergies, presence of intravenous antimicrobials, presence of needed equipment, and any other concerns were reviewed and agreed upon by all members of the operating room team. We then started the operation by placing a 5-mm skin incision in the right- upper quadrant, subcostal midclavicular line, and introduced a 5-mm [employer] trocar into the peritoneal space, visualizing all the layers of the abdominal wall as we entered. Note that there was no indication of any injury to underlying structures once we entered the peritoneum. We insufflated the abdominal cavity to a maximum pressure of 15 mmHg, again, confirmed lack of any injury to underlying structures prior to visualizing the rest of the abdominal cavity. We found the fundus of the gallbladder to be not visible and covered with omentum. There was no evidence of malignancy. No evidence of calcifications or significant issues with adhesions, or other abnormalities. The liver appeared to be healthy. With this information, we went a head and placed the other trocars under direct visualization, after injecting their sites with 0.25% Marcaine with epinephrine , placing a 5-mm trocar in the umbilical midline area, a 5-mm trocar in the right anterior axillary line, and a 12-mm trocar in the midline subxiphoid region. With our instruments in place, we had excellent visualization and access to the right-upper quadrant. We then we grasped the fundus of the gallbladder and pointed up towards the right-upper quadrant. There significant amount of omental adhesions onto the infundibulum which we took down with judicious use of meticulous blunt dissection. We were then able to grasp the infundibulum and pull it out in order to expose the critical triangle of Calot. We then placed our usual serosal cuts along the long axis of the gallbladder 1 cm away from its attachment to the liver bed up towards the fundus, and then joined these 2 lines under the infundibulum, taking care not to deliver any energy to underlying structures. Due to the extreme amount of scarring in the area of triangle of Calot low, and to maximize the degree of safety of the operation, I decided to take the gallbladder top-down. We accomplished this with a combination of blunt dissection as well as cautery. This was very difficult and at one time, I had to use 3 Raytek inside of the abdominal cavity to hold the liver up as well as to control the oozing which was from the liver bed but not from obvious vessel injury. This certainly contributed to the complexity of the operation as well as the blood loss. Once we had dissected the gallbladder off the majority of its attachment onto the gallbladder bed, we were able to focus more on the area of triangle of Calot low. With very judicious use of mainly blunt dissection, I was able to disconnect the adhesions onto the infundibulum on the most caudal portions and could see a cystic duct that was involved in inflamed tissue. I was able to dissect the gallbladder off of the portal structures to a point where I could use a laparoscopic Mendes PHIL stapler with a vascular (white) load to transect the gallbladder off of the shasta hepatis structures. One small portion of the right lateral edge of the staple line was still attached to the specimen and I transected across this using one more firing of the same vascular (white) load of the stapler. The stapler fired appropriately and there was no technical difficulties with the machine. There was hand cigar maker rows of vinicius going across the area of the cystic duct. Note that we were not able to individually isolate the cystic artery, but given the amount of inflammation of the gallbladder, I suspect that this vessel was probably clotted in the recent past. We then delivered the gallbladder out inside of an EndoCatch bag through the 12- mm trocar site that we had to enlarge to about 6 cm, but without contaminating the wound. The gallbladder was taken out hole inside of the bag and was sent to Pathology for evaluation. Returning to the abdominal cavity, we ensured that there was adequate hemostasis and bile-stasis. This was accomplished by using time and replacing the 3 Raytek with a new Ray-Natali inside of the gallbladder fossa and reexamining the area after a few minutes of waiting holding pressure. Hemorrhage was controlled. There was no obvious evidence of any bile leaking in the area. Given the significant amount of dissection that had to be done as well as a degree of difficulty of the case, I decided to leave a 19 Nep[place] Oh drain was placed through the right anterior axillary line 5 mm trocar site, leaving the tip in the gallbladder fossa and securing the drain of the skin using 2-0 nylon suture. We then removal of all of or equipment, including the Ray-Natali and the pneumoperitoneum from the abdominal cavity, and then reapproximating the 12-mm trocar site with 5 [id number] 0 Vicryl sutures, followed by washing the wounds with copious amounts of normal saline, and then reapproximating the skin using interrupted 4-0 Monocryl sutures. Light dressing was then applied. At the end of the operation, both the sponge count and needle count were reportedly correct x2. The patient tolerated the procedure without any reported complications. Please note that this operation qualifies for modifier 22 given the degree of difficulty of the case as well as complexity of the decision-making. We spent approximately 60 minutes more than usual time for even a difficult gallbladder to ensure that this operation was done safely and effectively. ESTIMATED BLOOD LOSS: 300 mL BLOOD OR BLOOD PRODUCT TRANSFUSIONS: None to my knowledge. SPECIMENS: 1. Gallbladder COMPLICATIONS: None. DISPOSITION: Recovery area. Disclaimer: Inadvertent spelling and grammatical errors are likely due to EHR/ dictation software use and do not reflect on the quality of delivered patient care. JOSE ANGEL ZAMORA M.D. Feb 04, 2017 14:24
[2017-02-04] MEDS ORDERED: HYDROmorphONE 1 MG/ML SYG IV PRN (14:30)
[2017-02-04] MEDS ORDERED: HYDROCODONE/APAP (5/325) TAB PO PRN (14:30)
--- NOTE | 2017-02-04 14:51 | PN ---
Date/Time of Note Date/Time of Note DATE: 02/04/17 TIME: 14:50 Assessment/Plan VTE Prophylaxis VTE Prophylaxis Intervention: LMWH Lines/Catheters IV Catheter Type (from Nrs): Peripheral IV Assessment/Plan Chief Complaint/Hosp Course 1. Severe acute on chronic cholecystitis. Status post laparoscopic cholecystectomy and placement of a drain on 02/04/2017. Continue pain control. Encourage frequent ambulation and frequent use of incentive spirometry. Advancement of diet as per surgery. 2. Obesity. BMI of 30.1 kg/m. Weight reduction advised. Fasting lipid panel within normal limits. Hemoglobin A1c 5.5. 3. Transaminitis with hyperbilirubinemia. Most probably secondary to #1. Improving. 4. Fluids, electrolytes, and nutrition. Diet to be resumed as per general surgery. 5. DVT prophylaxis. Subcutaneous Lovenox. 6. Plan. Continue analgesia. Encourage early ambulation and frequent use of incentive spirometry. Advancement of diet as per surgery. Case discussed with . Problems: Subjective 24 Hr Interval Summary Free Text/Dictation Patient status post laparoscopic cholecystectomy today. Patient in the recovery room. Exam/Review of Systems Vital Signs Vitals Vital Signs Date Time Temp Pulse Resp B/P Pulse Ox O2 Delivery O2 Flow Rate FiO2 02/04/17 14:20 72 19 122/70 100 Nasal Cannula 4.0 02/04/17 13:54 98.6 Intake and Output 02/03/17 02/03/17 02/04/17 15:00 23:00 07:00 Intake Total 500 ml 820 ml 800 ml Output Total 1400 ml Balance 500 ml 820 ml -600 ml Exam General: Adequately build 36 year-old female lying in bed in no apparent distress. HEENT: Normocephalic, atraumatic. Eyes: Anicteric sclerae, conjunctivae clear. ENT: Nasal septum midline, oral mucosa moist. Neck supple, no JVD noticed. Respiratory: Bilaterally clear breath sounds. No use of accessory muscles of respiration. No adventitious breath sounds. Cardiovascular: S1, S2 heard. No murmurs or gallops. Abdomen: Soft. Right lower quadrant LILLY drain in place. Genitourinary: Deferred. Extremities: No cyanosis, no clubbing, no edema. Peripheral pulses palpable. Neurologic: Cranial nerves II through XII grossly intact. The patient is awake, alert, and oriented. Skin: Normal skin turgor. No skin rashes. Results Result Diagram: 02/04/17 0433 02/04/17 0433 Results 24 hrs Laboratory Tests Test 02/04/17 04:33 White Blood Count 15.9 H Red Blood Count 4.15 L Hemoglobin 11.2 L Hematocrit 35.3 L Mean Corpuscular Volume 85.1 Mean Corpuscular Hemoglobin 27.0 L Mean Corpuscular Hemoglobin Concent 31.7 L Red Cell Distribution Width 13.5 Platelet Count 208 Mean Platelet Volume 10.7 H Neutrophils % 84.8 H Lymphocytes % 7.2 L Monocytes % 7.1 Eosinophils % 0.1 Basophils % 0.1 Nucleated Red Blood Cells % 0.0 Neutrophils # 13.5 H Lymphocytes # 1.1 Monocytes # 1.1 H Eosinophils # 0.0 Basophils # 0.0 Nucleated Red Blood Cells # 0.0 Prothrombin Time 14.9 H Prothrombin Time Ratio 1.2 INR International Normalized Ratio 1.16 Sodium Level 137 Potassium Level 3.7 Chloride Level 104 Carbon Dioxide Level 27 Anion Gap 10 Blood Urea Nitrogen 7 Creatinine 0.61 Glucose Level 111 Calcium Level 8.5 Phosphorus Level 2.9 Magnesium Level 2.0 Total Bilirubin 1.6 H Direct Bilirubin 0.00 Indirect Bilirubin 1.6 H Aspartate Amino Transf (AST/SGOT) 21 Alanine Aminotransferase (ALT/SGPT) 71 H Alkaline Phosphatase 182 H Total Protein 7.2 Albumin 3.6 Globulin 3.60 H Albumin/Globulin Ratio 1.00 Medications Medications Current Medications Ondansetron HCl (Zofran Inj) 4 mg Q6H PRN IV NAUSEA AND/OR VOMITING Last administered on 02/04/17t 04:49; Admin Dose 4 MG; Start 02/03/17 at 00:00 Acetaminophen 650 mg 650 mg Q6H PRN PO PAIN LEVEL 1-3 OR FEVER; Start 02/03/17 at 00:00 Potassium Chloride/Dextrose/ Sod Cl (D5-1/2ns + KCl 20 Meq) 1,000 ml @ 100 mls/ hr Q10H IV ; Start 02/04/17 at 14:06 Acetaminophen/ Hydrocodone Bitart ([place] (5/325)) 1 tab Q4H PRN PO PAIN LEVEL 4 -7; Start 02/04/17 at 14:30 Acetaminophen/ Hydrocodone Bitart ([place] (5/325)) 2 tab Q4H PRN PO PAIN LEVEL 7 -10; Start 02/04/17 at 14:30 Hydromorphone HCl (Dilaudid) 0.5 mg Q2 PRN IV PAIN; Start 02/04/17 at 14:30 Hydromorphone HCl (Dilaudid) 1 mg Q2 PRN IV PAIN; Start 02/04/17 at 14:30 Docusate Sodium (Colace) 100 mg BID PO ; Start 02/06/17 at 09:00 Bisacodyl (Dulcolax Supp) 10 mg Q12H [place] ; Start 02/06/17 at 12:00 Sodium Biphosphate/ Sodium Phosphate (Fleet Enema) 133 ml Q12H [place] ; Start at 18:00 Enoxaparin Sodium (Lovenox) 40 mg DAILY [place] ; Start 02/05/17 at 09:00 Famotidine (Pepcid) 40 mg HS PO ; Start 02/04/17 at 21:00 Docusate Sodium (Colace) 100 mg BID PRN PO CONSTIPATION; Start 02/06/17 at 21: 00 Bisacodyl (Dulcolax Supp) 10 mg Q12H PRN [place] CONSTIPATION; Start 02/06/17 at 21: 00 Sodium Biphosphate/ Sodium Phosphate (Fleet Enema) 133 ml Q12H PRN [place] CONSTIPATION; Start 02/06/17 at 21:00 MIRIAM ROSENTHAL NP Feb 04, 2017 14:51
[2017-02-04] MEDS: D5W-0.45 NACL + KCL 20 MEQ 1,000 ML IV SCH (15:37)
[2017-02-04] MEDS: FAMOTIDINE 20 MG TAB PO SCH (22:08)
[2017-02-05] MEDS: D5W-0.45 NACL + KCL 20 MEQ 1,000 ML IV SCH ×2 (00:06→06:36)
[2017-02-05] MEDS: HYDROmorphONE 1 MG/ML SYG IV PRN ×5 (00:21→14:47)
[2017-02-05 00:26] VITALS: BP 112/60; PULSE 76; RESP 18
[2017-02-05 02:33] VITALS: BP 117/64; RESP 17
[2017-02-05 05:00] VITALS: BP 119/69; PULSE 74; RESP 18
[2017-02-05 05:31] LABS: BASOPHILS % 0.2 % (0.0-2.0); EOSINOPHILS % 0.4 % (0.0-7.0); HEMATOCRIT 29.2 % (37.0-47.0); HEMOGLOBIN 9.4 g/dl (12.0-16.0); LYMPHOCYTES # 1.3 10^3/ul (0.8-2.9); LYMPHOCYTES % 15.7 % (15.0-51.0); MEAN CORPUSCULAR HEMOGLOBIN 27.2 pg (29.0-33.0); MEAN CORPUSCULAR HGB CONC 32.2 g/dl (32.0-37.0); MEAN CORPUSCULAR VOLUME 84.6 fl (82.0-101.0); MEAN PLATELET VOLUME 10.3 fl (7.4-10.4); MONOCYTE # 0.6 10^3/ul (0.3-0.9); MONOCYTES % 7.9 % (0.0-11.0); NEUTROPHIL # 6.1 10^3/ul (1.6-7.5); NEUTROPHILS % 75.3 % (39.0-77.0); PLATELET COUNT 216 10^3/UL (140-415); RED BLOOD COUNT 3.45 10^6/ul (4.20-5.40); RED CELL DISTRIBUTION WIDTH 13.5 % (11.5-14.5); WHITE BLOOD COUNT 8.1 10^3/ul (4.8-10.8)
[2017-02-05 05:44] LABS: MAGNESIUM 1.9 mg/dl (1.7-2.5); PHOSPHORUS 2.9 mg/dl (2.5-4.9)
[2017-02-05 05:52] LABS: ALBUMIN 2.9 g/dl (3.3-4.9); ALBUMIN/GLOBULIN RATIO 0.85; BILIRUBIN,INDIRECT 1.1 mg/dl (0-1.1); BILIRUBIN,TOTAL 1.1 mg/dl (0.2-1.3); CALCIUM 8.2 mg/dl (8.4-10.2); CREATININE 0.6 mg/dl (0.44-1.00); POTASSIUM 3.5 mmol/L (3.5-5.1); TOTAL PROTEIN 6.3 g/dl (6.1-8.1)
[2017-02-05 05:54] LABS: INR 1.08; PT RATIO 1.1
[2017-02-05 05:55] LABS: PARTIAL THROMBOPLASTIN TIME 42.7 Sec (25.0-35.0)
[2017-02-05 08:00] VITALS: BP 116/73; RESP 18
--- NOTE | 2017-02-05 09:16 | PN ---
Date/Time of Note Date/Time of Note DATE: 02/05/17 TIME: 09:14 Assessment/Plan VTE Prophylaxis VTE Prophylaxis Intervention: LMWH Lines/Catheters IV [facility] Type [facility] Peripheral IV Urinary Cath still in place: No Assessment/Plan Chief Complaint/Hosp Course 1. Severe acute on chronic cholecystitis. Status post laparoscopic cholecystectomy and placement of a drain on 02/04/2017. Continue pain control. Encourage frequent ambulation and frequent use of incentive spirometry. Advancement of diet as per surgery. 2. Obesity. BMI of 30.1 kg/m. Weight reduction advised. Fasting lipid panel within normal limits. Hemoglobin A1c 5.5. 3. Transaminitis with hyperbilirubinemia. Most probably secondary to #1. Improving. 4. Fluids, electrolytes, and nutrition. Clear liquids. Advancement of diet per general surgery. 5. DVT prophylaxis. Subcutaneous Lovenox. 6. Plan. Continue analgesia. Encourage early ambulation and frequent use of incentive spirometry. Advancement of diet as per surgery. Case discussed with . Problems: Subjective 24 Hr Interval Summary Free Text/Dictation Abdominal pain well controlled. Has not started passing any gas. Exam/Review of Systems Vital Signs Vitals Vital Signs Date Time Temp Pulse Resp B/P Pulse Ox O2 Delivery O2 Flow Rate FiO2 02/05/17 08:00 98.5 75 18 116/73 100 02/05/17 05:00 Nasal Cannula 02/04/17 23:00 2.0 Intake and Output 02/04/17 02/04/17 02/05/17 15:00 23:00 07:00 Intake Total 900 ml 550 ml 1280 ml Output Total 300 ml 700 ml 810 ml Balance 600 ml -150 ml 470 ml Exam General: Adequately build 36 year-old female lying in bed in no apparent distress. HEENT: Normocephalic, atraumatic. Eyes: Anicteric sclerae, conjunctivae clear. ENT: Nasal septum midline, oral mucosa moist. Neck supple, no JVD noticed. Respiratory: Bilaterally clear breath sounds. No use of accessory muscles of respiration. No adventitious breath sounds. Cardiovascular: S1, S2 heard. No murmurs or gallops. Abdomen: Soft. Right lower quadrant LILLY drain in place draining serosanguineous fluid. Genitourinary: Deferred. Extremities: No cyanosis, no clubbing, no edema. Peripheral pulses palpable. Neurologic: Cranial nerves II through XII grossly intact. The patient is awake, alert, and oriented. Skin: Normal skin turgor. No skin rashes. Results Result Diagram: 02/05/1743102/05/17431 Results 24 hrs Laboratory Tests Test 02/05/17 04:32 White Blood Count 8.1 # Red Blood Count 3.45 L Hemoglobin 9.4 L Hematocrit 29.2 L Mean Corpuscular Volume 84.6 Mean Corpuscular Hemoglobin 27.2 L Mean Corpuscular Hemoglobin Concent 32.2 Red Cell Distribution Width 13.5 Platelet Count 216 Mean Platelet Volume 10.3 Neutrophils % 75.3 Lymphocytes % 15.7 Monocytes % 7.9 Eosinophils % 0.4 Basophils % 0.2 Nucleated Red Blood Cells % 0.0 Neutrophils # 6.1 Lymphocytes # 1.3 Monocytes # 0.6 Eosinophils # 0.0 Basophils # 0.0 Nucleated Red Blood Cells # 0.0 Prothrombin Time 14.0 Prothrombin Time Ratio 1.1 INR International Normalized Ratio 1.08 Activated Partial Thromboplast Time 42.7 H Sodium Level 135 Potassium Level 3.5 Chloride Level 102 Carbon Dioxide Level 30 Anion Gap 7 L Blood Urea Nitrogen 6 L Creatinine 0.60 Glucose Level 137 Lactic Acid Level 0.7 Calcium Level 8.2 L Phosphorus Level 2.9 Magnesium Level 1.9 Total Bilirubin 1.1 Direct Bilirubin 0.00 Indirect Bilirubin 1.1 Aspartate Amino Transf (AST/SGOT) 58 H Alanine Aminotransferase (ALT/SGPT) 90 H Alkaline Phosphatase 140 H B-Type Natriuretic Peptide 125 Total Protein 6.3 Albumin 2.9 L Globulin 3.40 H Albumin/Globulin Ratio 0.85 Medications Medications Current Medications Ondansetron HCl (Zofran Inj) 4 mg Q6H PRN IV NAUSEA AND/OR VOMITING Last administered on 02/04/17 04:49; Admin Dose 4 MG; Start 02/03/17 at 00:00 Acetaminophen 650 mg 650 mg Q6H PRN PO PAIN LEVEL 1-3 OR FEVER; Start 02/03/17 at 00:00 Potassium Chloride/Dextrose/ Sod Cl (D5-1/2ns + KCl 20 Meq) 1,000 ml @ 100 mls/ hr Q10H IV Last administered on 02/05/17 06:36; Admin Dose 100 MLS/HR; Start 02/04/17 at 14:06 Acetaminophen/ Hydrocodone Bitart ([place] (5/325)) 1 tab Q4H PRN PO PAIN LEVEL 4 -7; Start 02/04/17 at 14:30 Acetaminophen/ Hydrocodone Bitart ([place] (5/325)) 2 tab Q4H PRN PO PAIN LEVEL 7 -10; Start 02/04/17 at 14:30 Hydromorphone HCl (Dilaudid) 0.5 mg Q2 PRN IV PAIN; Start 02/04/17 at 14:30 Hydromorphone HCl (Dilaudid) 1 mg Q2 PRN IV PAIN Last administered on 06:31; Admin Dose 1 MG; Start 02/04/17 at 14:30 Docusate Sodium (Colace) 100 mg BID PO ; Start 02/06/17 at 09:00 Bisacodyl (Dulcolax Supp) 10 mg Q12H [place] ; Start 02/06/17 at 12:00 Sodium Biphosphate/ Sodium Phosphate (Fleet Enema) 133 ml Q12H [place] ; Start at 18:00 Enoxaparin Sodium (Lovenox) 40 mg DAILY [place] ; Start 02/05/17 at 09:00 Famotidine (Pepcid) 40 mg HS PO Last administered on 02/04/17 22:08; Admin Dose 40 MG; Start 02/04/17 at 21:00 Docusate Sodium (Colace) 100 mg BID PRN PO CONSTIPATION; Start 02/06/17 at 21: 00 Bisacodyl (Dulcolax Supp) 10 mg Q12H PRN [place] CONSTIPATION; Start 02/06/17 at 21: 00 Sodium Biphosphate/ Sodium Phosphate (Fleet Enema) 133 ml Q12H PRN [place] CONSTIPATION; Start 02/06/17 at 21:00 MIRIAM ROSENTHAL NP Feb 05, 2017 09:16
[2017-02-05] MEDS: ENOXAPARIN 40 MG/0.4 ML SYG SC SCH (09:26)
[2017-02-05 14:00] VITALS: BP 111/81; RESP 17
--- NOTE | 2017-02-05 14:07 | PN ---
Date/Time of Note Date/Time of Note DATE: 02/05/17 TIME: 14:06 Assessment/Plan Lines/Catheters IV Catheter Type (from Nrs): Peripheral IV Zimmer in Place (from Nrs): No Assessment/Plan Assessment/Plan [facility] Progress Note Date of Service: 02/05/2017 Place of service: [facility] fourth floor Today's Assessment & Plan: Overall stable and doing relatively well. Abdomen remains benign. Awaiting further return of bowel function. Drain output appears to be within expected parameters. No evidence for bile leak. No indication for acute surgical intervention. With above assessment, I've recommended the following for today: 1. Regular diet 2. Increase activity 3. Increase incentive spirometry 4. Saline lock IV 5. Oral conversion 6. Set up for potential discharge home tomorrow if doing well 7. Please include the following in the patient's discharge instructions: "Please call [phone] if any of fever, nausea, vomiting, discharge from wound, wound redness, increase or sudden pain, blood in stool or vomit, or any other unusual signs or symptoms. Also, please call the same number in a few days to schedule an appointment for your follow up visit. Patient may remove dressings tomorrow. Showers OK starting tomorrow. No swimming , hot tub or bath for 2 weeks. No lifting more than 25 lbs for 8 weeks." Thank you again for your great care of this very pleasant patient and wonderful family. If there are any questions, please feel free to call me at [phone]. Nature of presenting problem: Moderate to high severity Please note that, given the multiple number of diagnoses or management options, the moderate amount and/or complexity of data needed to be reviewed, and moderate to high risk of complications and/or morbidity or mortality, this qualifies as moderate complexity type of decision-making. Disclaimers: 1. Inadvertent spelling and grammatical errors are likely due to electronic health record (EHR)/dictation software use and do not reflect on the quality of delivered patient care. 2. The electronic timestamp recorded on this note does not necessarily reflect the actual date and time of the visit. 3. Portions of this note are created through electronic templates and computer algorithms that may bring in information either from the system or from other physicians and providers that are outside of my control and may not be always accurate. In general (but not always) this happens either in the beginning or at the end of the note. My portions of the gathered data are generally dictated in 1 continuous block of text and entered into one field in the EHR. 4. There may be other unanticipated errors in the note that are outside of my control. I can only attest to the portions of the note that I have created. Updated clinical summary: A very-pleasant 36-year-old lady with comorbidity of BMI 30.1, presenting with acute cholecystitis without obvious evidence of choledocholithiasis on her MRCP. S/p an otherwise uncomplicated but very difficult laparoscopic cholecystectomy at [facility] 02/04/17 with findings of severe acute on chronic cholecystitis. Comorbidities: 1. Severe acute on chronic cholecystitis. S/p an otherwise uncomplicated but very difficult laparoscopic cholecystectomy at [facility] 02/04/17 with findings of severe acute on chronic cholecystitis. 2. 2016 3. BMI 30.1 Subjective: No major events or complaints; mild to moderate abd pain that is consistent with incisional type pain and under control with medications; no n/v/d; no sob or cp; + flatus; - BM; - activity Objective: Vitals: See below I's & O's: See below Exam: GENERAL: On exam, the patient was lying in bed and appeared to be comfortable and in no acute distress. ABDOMEN: Soft, nontender and nondistended. Incision dressings are clean, dry and intact without any evidence of obvious erythema, edema, discharge, or hernia. Surgical drain ss. There are no peritoneal signs or guarding. SKIN: Skin appears to be pink and feels warm to touch. NEUROLOGIC: Patient is awake, alert, and follows commands appropriately. Labs: See below Exam/Review of Systems Vital Signs Vitals Vital Signs Date Time Temp Pulse Resp B/P Pulse Ox O2 Delivery O2 Flow Rate FiO2 02/05/17 08:00 Nasal Cannula 2.0 02/05/17 08:00 98.5 75 18 116/73 100 Intake and Output 02/04/17 02/04/17 02/05/17 15:00 23:00 07:00 Intake Total 900 ml 550 ml 1280 ml Output Total 300 ml 700 ml 810 ml Balance 600 ml -150 ml 470 ml Results Result Diagram: 02/05/17 0432 02/05/17 0432 JOSE ANGEL SALOMON M.D. Feb 05, 2017 14:07
[2017-02-05] MEDS: HYDROCODONE/APAP (5/325) TAB PO PRN (19:22)
[2017-02-05 19:26] VITALS: BP 129/76; RESP 18
[2017-02-05] MEDS: FAMOTIDINE 20 MG TAB PO SCH (20:25)
[2017-02-06 01:46] VITALS: BP 117/56; RESP 18
[2017-02-06] MEDS: HYDROCODONE/APAP (5/325) TAB PO PRN ×2 (05:47→15:57)
[2017-02-06 05:55] LABS: BASOPHILS % 0.6 % (0.0-2.0); EOSINOPHILS # 0.1 10^3/ul (0.0-0.5); EOSINOPHILS % 1.5 % (0.0-7.0); HEMATOCRIT 30.9 % (37.0-47.0); LYMPHOCYTES # 1.4 10^3/ul (0.8-2.9); LYMPHOCYTES % 27.3 % (15.0-51.0); MEAN CORPUSCULAR HEMOGLOBIN 27.5 pg (29.0-33.0); MEAN CORPUSCULAR HGB CONC 32.4 g/dl (32.0-37.0); MEAN CORPUSCULAR VOLUME 84.9 fl (82.0-101.0); MEAN PLATELET VOLUME 9.9 fl (7.4-10.4); MONOCYTE # 0.5 10^3/ul (0.3-0.9); NEUTROPHIL # 3.2 10^3/ul (1.6-7.5); NEUTROPHILS % 60.8 % (39.0-77.0); PLATELET COUNT 260 10^3/UL (140-415); RED BLOOD COUNT 3.64 10^6/ul (4.20-5.40); RED CELL DISTRIBUTION WIDTH 12.9 % (11.5-14.5); WHITE BLOOD COUNT 5.2 10^3/ul (4.8-10.8)
[2017-02-06 06:15] LABS: PHOSPHORUS 4.1 mg/dl (2.5-4.9)
[2017-02-06 06:31] LABS: ALBUMIN 3.2 g/dl (3.3-4.9); ALBUMIN/GLOBULIN RATIO 0.86; BILIRUBIN,INDIRECT 1.1 mg/dl (0-1.1); BILIRUBIN,TOTAL 1.1 mg/dl (0.2-1.3); CALCIUM 8.8 mg/dl (8.4-10.2); CREATININE 0.6 mg/dl (0.44-1.00); POTASSIUM 3.3 mmol/L (3.5-5.1); TOTAL PROTEIN 6.9 g/dl (6.1-8.1)
[2017-02-06 07:34] VITALS: BP 113/67; RESP 20
[2017-02-06] MEDS ORDERED: DOCUSATE SODIUM 100 MG CAP PO SCH (09:00)
[2017-02-06] MEDS: ENOXAPARIN 40 MG/0.4 ML SYG SC SCH (09:26)
[2017-02-06] MEDS ORDERED: POTASSIUM CHLORIDE (SR) 20 MEQ TAB PO STA (11:25)
[2017-02-06] MEDS ORDERED: HYDR-905 PO (11:33)
[2017-02-06] MEDS ORDERED: DOCU-144 PO (11:34)
[2017-02-06] MEDS ORDERED: BISACODYL 10 MG SUPP PR SCH (12:00)
--- NOTE | 2017-02-06 14:44 | PN ---
Date/Time of Note Date/Time of Note DATE: 02/06/17 TIME: 14:41 Assessment/Plan Lines/Catheters IV Catheter Type (from Nrs): Saline Lock Zimmer in Place (from Nrs): No Assessment/Plan Assessment/Plan [facility] Progress Note Date of Service: 02/06/2017 Place of service: [facility] fourth floor Today's Assessment & Plan: Overall stable and doing relatively well. Abdomen remains benign. Drain output appears to be within expected parameters; but will elect to keep in place until return to office for follow up. No obvious evidence for bile leak. No indication for acute surgical intervention. With above assessment, I've recommended the following for today: 1. Discharge home 2. Please teach patient and family drain care and instruct him to keep a daily log of output of the drain and to bring the list to the office on the follow-up visit 3. Please include the following in the patient's discharge instructions: "Please call [phone] if any of fever, nausea, vomiting, discharge from wound, wound redness, increase or sudden pain, blood in stool or vomit, or any other unusual signs or symptoms. Also, please call the same number in a few days to schedule an appointment for your follow up visit. Patient may remove dressings tomorrow. Showers OK starting tomorrow. No swimming , hot tub or bath for 2 weeks. No lifting more than 25 lbs for 8 weeks." Thank you again for your great care of this very pleasant patient and wonderful family. If there are any questions, please feel free to call me at [phone]. Nature of presenting problem: Moderate to high severity Please note that, given the multiple number of diagnoses or management options, the moderate amount and/or complexity of data needed to be reviewed, and moderate to high risk of complications and/or morbidity or mortality, this qualifies as moderate complexity type of decision-making. Disclaimers: 1. Inadvertent spelling and grammatical errors are likely due to electronic health record (EHR)/dictation software use and do not reflect on the quality of delivered patient care. 2. The electronic timestamp recorded on this note does not necessarily reflect the actual date and time of the visit. 3. Portions of this note are created through electronic templates and computer algorithms that may bring in information either from the system or from other physicians and providers that are outside of my control and may not be always accurate. In general (but not always) this happens either in the beginning or at the end of the note. My portions of the gathered data are generally dictated in 1 continuous block of text and entered into one field in the EHR. 4. There may be other unanticipated errors in the note that are outside of my control. I can only attest to the portions of the note that I have created. Updated clinical summary: A very-pleasant 36-year-old lady with comorbidity of BMI 30.1, presenting with acute cholecystitis without obvious evidence of choledocholithiasis on her MRCP. S/p an otherwise uncomplicated but very difficult laparoscopic cholecystectomy at [facility] 02/04/17 with findings of severe acute on chronic cholecystitis. Comorbidities: 1. Severe acute on chronic cholecystitis. S/p an otherwise uncomplicated but very difficult laparoscopic cholecystectomy at [facility] 02/04/17 with findings of severe acute on chronic cholecystitis. 2. 2015 3. BMI 30.1 Subjective: No major events or complaints; no further issues with abd pain and under control with medications; no n/v/d; no sob or cp; + flatus; - BM; + activity Objective: Vitals: See below I's & O's: See below Exam: GENERAL: On exam, the patient was lying in bed and appeared to be comfortable and in no acute distress. ABDOMEN: Soft, nontender and nondistended. Incision dressings discontinued and incisions are clean, dry and intact without any evidence of obvious erythema, edema, discharge, or hernia. Surgical drain ss without any obvious hint of bile. There are no peritoneal signs or guarding. SKIN: Skin appears to be pink and feels warm to touch. NEUROLOGIC: Patient is awake, alert, and follows commands appropriately. Labs: See below Exam/Review of Systems Vital Signs Vitals Vital Signs Date Time Temp Pulse Resp B/P Pulse Ox O2 Delivery O2 Flow Rate FiO2 02/06/17 07:34 97.9 65 20 113/67 98 02/05/17 08:00 Nasal Cannula 2.0 Intake and Output 02/05/17 02/05/17 02/06/17 15:00 23:00 07:00 Intake Total 800 ml 800 ml 460 ml Output Total 30 ml 10 ml Balance 800 ml 770 ml 450 ml Results Result Diagram: 02/06/17 0444 02/06/17 0443 JOSE ANGEL SALOMON M.D. Feb 06, 2017 14:44
--- NOTE | 2017-02-06 14:52 | PDOCDIS ---
Discharge Instructions DIAGNOSIS Discharge Diagnosis 1. Severe acute on chronic cholecystitis. Status post laparoscopic cholecystectomy and placement of a drain on 02/04/2017. 2. Obesity. BMI of 30.1 kg/m. 3. Transaminitis with hyperbilirubinemia. Most probably secondary to #1. CONDITION Patient Condition: Stable HOME CARE INSTRUCTIONS: Diet Instructions: Low Fat /Cholesterol FOLLOW UP/APPOINTMENTS Follow-up Plan 1. Follow up with Dr. Sherwin Zamora in one week OTHER ORDERS: Other Orders: per Dr. Sherwin Zamora: Please call [phone] if any of fever, nausea, vomiting, discharge from wound , wound redness, increase or sudden pain, blood in stool or vomit, or any other unusual signs or symptoms. Also, please call the same number in a few days to schedule an appointment for your follow up visit. Patient may remove dressings tomorrow. Showers OK starting tomorrow. No swimming , hot tub or bath for 2 weeks. No lifting more than 25 lbs for 8 weeks." Thank you again for your great care of this very pleasant patient and wonderful family. If there are any questions, please feel free to call me at [phone]. JESS WADSWORTH Feb 06, 2017 14:52
[2017-02-06] MEDS ORDERED: NA PHOSPHATE/BIPHOS 133 ML ENEMA PR SCH (18:00)
[2017-02-06] MEDS ORDERED: BISACODYL 10 MG SUPP PR PRN (21:00)
[2017-02-06] MEDS ORDERED: NA PHOSPHATE/BIPHOS 133 ML ENEMA PR PRN (21:00)
[2017-02-06] MEDS ORDERED: DOCUSATE SODIUM 100 MG CAP PO PRN (21:00)
== END 2017-02-06 17:05 | disposition home or self-care (01) | DRG 419 ==
LOC: FTE 19:32 → MS1 23:12
PROVIDERS: ADMIT Family Medicine; ATTEND Family Medicine
PROC: 0FT44ZZ Resection of Gallbladder, Percutaneous Endoscopic Approach (ICD-10-PCS; principal; 2017-02-04 10:30)
DX: K80.12 Calculus of gallbladder with acute and chronic cholecystitis without obstruction (principal); E87.6 Hypokalemia; E80.6 Other disorders of bilirubin metabolism; E66.9 Obesity, unspecified; Z68.30 Body mass index [BMI] 30.0-30.9, adult
CPT/HCPCS: 36415; 74181; 76705; 80053; 80061; 81001; 83036; 83605; 83690; 83735; 83880; 84100; 84436; 84443; 84479; 85025; 85610; 85730; 88304; 96374; 96375; 96376; A4310; J0690; J1170; J1650; J2270; J2405; J2543; J2765; J2795; J3010; J3480; J7030; J7999

== ENCOUNTER 2017-02-15 10:05 | Outpatient (CLI) | payer MEDICAID ==
[~2017-02-15] VITALS: Ht 160 cm; Wt 73.4 kg
[~2017-02-15 10:05] MED LIST: DOCU-144 PO; HYDR-905 PO
[2017-02-15 10:08] VITALS: BP 140/72; PULSE 82; RESP 16; Ht 160 cm; Wt 73.4 kg
--- NOTE | 2017-02-15 10:28 | PN ---
Date/Time of Note Date/Time of Note DATE: 02/15/17 TIME: 10:20 Assessment/Plan Assessment/Plan Assessment/Plan [facility] Progress Note Date of Service: 02/15/2017 Place of service: [facility] Today's Assessment & Plan: Overall stable and doing relatively well. Abdomen remains benign. Drain output low and d/c'd in the office without difficulty. No obvious evidence for bile leak. No indication for acute surgical intervention. Ok to resume normal life. With above assessment, I've recommended the following for today: 1. F/u with PCP 2. F/u with us prn Thank you again for your great care of this very pleasant patient and wonderful family. If there are any questions, please feel free to call me at [phone]. Nature of presenting problem: Moderate to high severity Please note that, given the multiple number of diagnoses or management options, the moderate amount and/or complexity of data needed to be reviewed, and moderate to high risk of complications and/or morbidity or mortality, this qualifies as moderate complexity type of decision-making. Disclaimers: 1. Inadvertent spelling and grammatical errors are likely due to electronic health record (EHR)/dictation software use and do not reflect on the quality of delivered patient care. 2. The electronic timestamp recorded on this note does not necessarily reflect the actual date and time of the visit. 3. Portions of this note are created through electronic templates and computer algorithms that may bring in information either from the system or from other physicians and providers that are outside of my control and may not be always accurate. In general (but not always) this happens either in the beginning or at the end of the note. My portions of the gathered data are generally dictated in 1 continuous block of text and entered into one field in the EHR. 4. There may be other unanticipated errors in the note that are outside of my control. I can only attest to the portions of the note that I have created. Updated clinical summary: A very-pleasant 36-year-old lady with comorbidity of BMI 30.1, presenting with acute cholecystitis without obvious evidence of choledocholithiasis on her MRCP. S/p an otherwise uncomplicated but very difficult laparoscopic cholecystectomy at [facility] 02/04/17 with findings of severe acute on chronic cholecystitis. Final path: Acute suppurative cholecystitis with cholelithiasis and no malignancy. Comorbidities: 1. Severe acute on chronic cholecystitis. S/p an otherwise uncomplicated but very difficult laparoscopic cholecystectomy at [facility] 02/04/17 with findings of severe acute on chronic cholecystitis. 2. 2015 3. BMI 30.1 Subjective: No major events or complaints since d/c; drain output minimal; no abd pain and no longer on pain medications; no n/v/d; no sob or cp; + flatus; + BM; + activity Objective: Vitals: See below Exam: GENERAL: On exam, the patient was lying in bed and appeared to be comfortable and in no acute distress. ABDOMEN: Soft, nontender and nondistended. Incisions are clean, dry and intact without any evidence of obvious erythema, edema, discharge, or hernia. Surgical drain ss without any obvious hint of bile and d/c'd at bedside without difficulty. There are no peritoneal signs or guarding. SKIN: Skin appears to be pink and feels warm to touch. NEUROLOGIC: Patient is awake, alert, and follows commands appropriately. JOSE ANGEL SALOMON M.D. Feb 15, 2017 10:28
== END 2017-02-15 16:52 | disposition home or self-care (01) ==
LOC: HPC 10:05
PROVIDERS: ATTEND Transplant Surgery
DX: K80.12 Calculus of gallbladder with acute and chronic cholecystitis without obstruction (principal)
CPT/HCPCS: G0463